=== PATIENT | female | born 1965 | race Asian ===

== ENCOUNTER 2019-03-11 17:35 | Emergency (ER) | payer OTHER ==
[2019-03-11 17:41] VITALS: BP 107/66; PULSE 98; TEMP 97.5; BMI 27.3
--- NOTE | 2019-03-11 18:42 | PDOC ---
History of Present Illness - General Chief Complaint: Redness To Affected Area Stated Complaint: FINGER PAIN Time Seen by Provider: 03/11/19 17:49 History Source: Patient Exam Limitations: No Limitations Past History - Past Medical History Allergies/Adverse Reactions: Allergies Allergy/AdvReac Type Severity Reaction Status Date / Time No Known Allergies Allergy Verified 03/11/19 17:41 Home Medications: Ambulatory Orders NK [No Known Home Medication] 03/11/19 COPD: No - Suicide/Smoking/Psychosocial Hx Smoking History: Current every day smoker Have you smoked in the past 12 months: No Number of Cigarettes Smoked Daily: 8 Information on smoking cessation initiated: Yes Hx Alcohol Use: No Drug/Substance Use Hx: No Substance Use Type: None *Physical Exam - Vital Signs Last Vital Signs Temp Pulse Resp BP Pulse Ox 97.5 F L 98 H 18 107/66 99 03/11/19 17:38 03/11/19 17:38 03/11/19 17:38 03/11/19 17:38 03/11/19 17:38 - Physical Exam General Appearance: No: Apparent Distress Extremity: positive: Normal Capillary Refill, Other (+paronychia of R middle finger, no felon, no streaking, no surrounding cellulitis) Integumentary: negative: Ecchymosis, Bruising Neurologic: positive: Alert, Normal Mood/Affect Procedures - Incision and Drainage I&D Site: Right: Paronychia (middle finger) Betadine cleansed: Yes Anesthesia: 1% Lidocaine Blade Size: 11 Attempts: 1 Medical Decision Making - Medical Decision Making 53 y/o F with no sig pmh presents with R middle finger infection x 2 days. Denies fever, chills, discharge from fingers, trauma. R middle finger paronychia I&D attempted - no pustular drainage at the time Site covered with bacitracin Advised continued warm soaks 03/11/19 18:27 *DC/Admit/Observation/Transfer Diagnosis at time of Disposition: Paronychia - Discharge Dispostion Disposition: HOME Condition at time of disposition: Stable Decision to Admit order: No - Referrals - Patient Instructions Printed Discharge Instructions: DI for Paronychia Additional Instructions: Thank you for choosing [facility]. It was a pleasure taking care of you. Continue warm soaks to site 3-4 times a day You may apply Bacitracin or Neosporin to site Return to the Emergency Department if your symptoms worsen or persist, you have fever, increased swelling or redness, streaking, swelling of pulp of finger or other concerning symptoms. - Post Discharge Activity
== END 2019-03-11 18:59 | disposition home or self-care (01) ==
LOC: JER 17:35 → JERFT 17:35
PROC: 0J9J0ZZ Drainage of Right Hand Subcutaneous Tissue and Fascia, Open Approach (ICD-10-PCS; principal; 2019-03-11)
DX: L03.011 Cellulitis of right finger (principal)
CPT/HCPCS: 10060; 99281-25